=== PATIENT | female | born 1995 | race African-American/Black ===

== ENCOUNTER 2017-10-05 23:03 | Emergency (ER) | payer OTHER ==
[2017-10-05 23:32] LABS: CONTROL LINE UCG INT CTR LINE PRESENT; URINE PREG TEST NEGATIVE (NEGATIVE)
[2017-10-05 23:36] LABS: KETONE, URINE AUTO RFX NEGATIVE (NEGATIVE); LEUKOCYTE ESTERASE UR AUTO RFX NEGATIVE (NEGATIVE); MUCUS, URINE RFX SMALL (NEGATIVE); NITRITE, URINE AUTO RFX NEGATIVE (NEGATIVE); RBC, URINE AUTO RFX TNTC /HPF (0-3); SPECIFIC GRAVITY UR AUTO RFX 1.036 (1.002-1.035); SQUAM EPITHELIAL CELL UR AURFX 0 /HPF (0-6); WBC, URINE AUTO RFX 0 /HPF (0-3)
[2017-10-06] MEDS: CIPROFLOXACIN 500 MG TAB PO (06:00)
[2017-10-06] MEDS: PHENAZOPYRIDINE 100 MG TAB PO (06:00)
== END 2017-10-06 06:10 | disposition home or self-care (01) ==
LOC: M ED 23:03
DX: N30.01 Acute cystitis with hematuria (principal); J45.909 Unspecified asthma, uncomplicated; Z91.013 Allergy to seafood
CPT/HCPCS: 74176

== ENCOUNTER 2018-03-25 11:00 | Emergency (ER) | payer OTHER ==
[2018-03-25 11:59] LABS: CONTROL LINE UCG INT CTR LINE PRESENT; URINE PREG TEST NEGATIVE (NEGATIVE)
[2018-03-25 12:00] LABS: KETONE, URINE AUTO RFX NEGATIVE (NEGATIVE); LEUKOCYTE ESTERASE UR AUTO RFX NEGATIVE (NEGATIVE); MUCUS, URINE RFX SMALL (NEGATIVE); NITRITE, URINE AUTO RFX NEGATIVE (NEGATIVE); RBC, URINE AUTO RFX 3 /HPF (0-3); SPECIFIC GRAVITY UR AUTO RFX 1.025 (1.002-1.035); SQUAM EPITHELIAL CELL UR AURFX 1 /HPF (0-6); WBC, URINE AUTO RFX 1 /HPF (0-3)
== END 2018-03-25 12:52 | disposition home or self-care (01) ==
LOC: M ED 11:00
DX: R30.0 Dysuria (principal); J45.909 Unspecified asthma, uncomplicated; Z91.013 Allergy to seafood
CPT/HCPCS: 84703

== ENCOUNTER 2018-08-06 00:50 | Emergency (ER) | payer OTHER ==
[~2018-08-06] VITALS: Ht 162.6 cm; Wt 109.1 kg
[~2018-08-06 00:50] MED LIST: AMOX500C PO; CIPR-249 PO; PYRI1TAB5 PO
[2018-08-06] MEDS ORDERED: PROAAER10 (00:58)
[2018-08-06] MEDS ORDERED: ADV250INH (00:58)
[2018-08-06] MEDS ORDERED: AZITHROMYCIN 250 MG TAB PO ONE (02:00)
[2018-08-06] MEDS ORDERED: LIDOCAINE 1% SDV 5 ML VIAL DILUENT ONE (02:00)
[2018-08-06] MEDS ORDERED: cefTRIAXone SOD 250 MG VIAL (J0696) IM ONE (02:00)
[2018-08-06 02:34] LABS: HCG, SERUM QUALITATIVE NEGATIVE (NEGATIVE)
[2018-08-06 02:54] VITALS: BP 140/80
[2018-08-06 03:54] LABS: CHLAMYDIA DNA AMPLIFICATION NEGATIVE (NEGATIVE); GC DNA AMPLIFICATION NEGATIVE (NEGATIVE)
[2018-08-07 10:38] LABS: HEPATITIS B SURFACE ANTIBODY NEGATIVE (POSITIVE); HEPATITIS B SURFACE ANTIGEN NEGATIVE (NEGATIVE); HEPATITIS C VIRUS ABY INDEX 0.1 INDEX (<0.8); HIV 1&2 SCREEN CENTAUR NEGATIVE (NEGATIVE)
== END 2018-08-06 02:55 | disposition home or self-care (01) ==
LOC: M ED 00:50
DX: Z20.2 Contact with and (suspected) exposure to infections with a predominantly sexual mode of transmission (principal); R10.2 Pelvic and perineal pain; J45.909 Unspecified asthma, uncomplicated
CPT/HCPCS: 36415; 81001; 81025; 84703; 86706; 86780; 86803; 87210; 87340; 87389; 87491; 87591; 96372; 99284; J0696